=== PATIENT | female | born 1965 | race Caucasian/White ===

== ENCOUNTER 2021-09-29 17:43 | Inpatient (IN) | payer OTHER, MEDICAID ==
[~2021-09-29] VITALS: Ht 144.8 cm; Wt 51.7 kg
[2021-09-29 19:33] VITALS: BP_SYST 195
[2021-09-29 20:56] LABS: BASOPHILS % (AUTO) 0.4 % (0.0-2.0); EOSINOPHILS # (AUTO) 0.1 K/uL (0.0-0.4); EOSINOPHILS % (AUTO) 1.5 % (0.0-4.0); LYMPHOCYTES % (AUTO) 32.1 % (20.5-51.5); MEAN CORPUSCULAR HEMOGLOBIN 32 pg (27-31); MEAN CORPUSCULAR HGB CONC 34 % (32-36); MEAN CORPUSCULAR VOLUME 94 fL (79.0-98.0); MONOCYTES # (AUTO) 1.1 K/uL (0.0-1.0); MONOCYTES % (AUTO) 11.7 % (1.7-9.3); NEUTROPHILS # (AUTO) 5.2 K/uL (1.8-7.7); NEUTROPHILS % (AUTO) 54.3 % (40.0-70.0); PLATELET COUNT (AUTO) 166 K/uL (130-430); RED BLOOD CELL COUNT(AUTO) 2.04 MIL/uL (4.2-6.2); RED CELL DISTRIBUTION WIDTH 15.4 % (9.0-15.0); WHITE BLOOD COUNT (AUTO) 9.5 K/uL (4.8-10.8)
[2021-09-29 20:58] LABS: ANION GAP 9 (5-15); CALCIUM 9.6 mg/dL (8.4-11.0); CHLORIDE 102 mmol/L (98-107); CREATININE 6.65 mg/dL (0.55-1.30); GLUCOSE 135 mg/dL (70-99); POTASSIUM 3.6 mmol/L (3.5-5.1); SODIUM SERUM 146 mmol/L (136-145); UREA NITROGEN, BLOOD 35 mg/dL (8-21)
[2021-09-29 21:00] LABS: GFR AFRICAN AMERICAN 8 mL/min (>90)
[2021-09-29 21:02] LABS: PROTHROMBIN TIME 10.1 SECS (9.5-12.5)
[2021-09-29 21:07] LABS: ALANINE AMINOTRANSFERASE 31 U/L (12-78); ALBUMIN 3.2 g/dL (3.4-4.8); ASPARTATE AMINOTRANSFERASE 25 U/L (10-37); TOTAL BILIRUBIN 0.5 mg/dL (0.0-1.0)
[2021-09-29 21:10] LABS: HEMATOCRIT 19.2 % (36-48); HEMOGLOBIN 6.6 g/dL (12.0-16.0)
[2021-09-29] MEDS ORDERED: INSULIN REGULAR, HUMAN 100 UNITS/ML, 10 ML VIAL (humuLIN R) SUBCUT PRN (22:15)
[2021-09-30] MEDS: CARVEDILOL 12.5 MG TABLET (COREG) PO SCH ×2 (01:22→08:55)
[2021-09-30] MEDS: amLODIPine BESYLATE 10 MG TABLET PO SCH ×2 (01:23→08:55)
[2021-09-30 04:10] VITALS: BP_SYST 146
[2021-09-30 08:00] VITALS: BP_SYST 170
[2021-09-30] MEDS ORDERED: LISI40TA13 PO (10:17)
[2021-09-30] MEDS ORDERED: CALC667T6 PO (10:17)
[2021-09-30] MEDS ORDERED: FURO-149 PO (10:17)
[2021-09-30] MEDS ORDERED: NOR10 PO (10:17)
[2021-09-30] MEDS ORDERED: FOLI-43 PO (10:17)
[2021-09-30] MEDS ORDERED: LIP10 PO (10:17)
[2021-09-30 12:00] VITALS: BP_SYST 166
[2021-09-30] MEDS ORDERED: amLODIPine BESYLATE 10 MG TABLET PO SCH (13:00)
[2021-09-30] MEDS ORDERED: HEPARIN SODIUM,PORCINE 5,000 UNITS/ML VIAL SUBCUT ONE (14:00)
[2021-09-30] MEDS ORDERED: FOLIC ACID 1 MG TABLET PO ONE (14:30)
[2021-09-30] MEDS ORDERED: FUROSEMIDE 40 MG TABLET PO ONE (15:00)
[2021-09-30] MEDS ORDERED: lisinopriL 20 MG TABLET PO ONE (15:00)
[2021-09-30 16:00] VITALS: BP_SYST 163
[2021-09-30] MEDS ORDERED: CALCIUM ACETATE 667 MG CAP PO SCH (18:00)
[2021-09-30] MEDS ORDERED: ATORVASTATIN 10 MG TABLET PO SCH (21:00)
[2021-10-01] MEDS ORDERED: lisinopriL 20 MG TABLET PO SCH (09:00)
[2021-10-01] MEDS ORDERED: FOLIC ACID 1 MG TABLET PO SCH (09:00)
[2021-10-01] MEDS ORDERED: FUROSEMIDE 40 MG TABLET PO SCH (09:00)
== END 2021-09-30 18:30 | disposition left against medical advice (07) | DRG 811 ==
LOC: SED 17:43 → STU 21:38
PROVIDERS: ADMIT Family Medicine; ATTEND Family Medicine
PROC: 5A1D70Z Performance of Urinary Filtration, Intermittent, Less than 6 Hours Per Day (ICD-10-PCS; principal; 2021-09-30)
PROC: 30233N1 Transfusion of Nonautologous Red Blood Cells into Peripheral Vein, Percutaneous Approach (ICD-10-PCS; 2021-09-30)
DX: D64.9 Anemia, unspecified (principal); N18.6 End stage renal disease; I13.2 Hypertensive heart and chronic kidney disease with heart failure and with stage 5 chronic kidney disease, or end stage renal disease; I50.32 Chronic diastolic (congestive) heart failure; Z20.822 Contact with and (suspected) exposure to COVID-19; Z53.29 Procedure and treatment not carried out because of patient's decision for other reasons
CPT/HCPCS: 36415; 36430; 71045; 80053; 82962; 83880; 84484; 85025; 85379; 85610-TC; 85730-TC; 86886; 86900; 86901; 86920; 90935; 93005; 99291; G0378; J1644; P9021